=== PATIENT | female | born 1980 | race Caucasian/White ===

== ENCOUNTER 2017-09-06 09:39 | Emergency (ER) | payer SELFPAY ==
[~2017-09-06] VITALS: Ht 162.6 cm; Wt 50.0 kg
[2017-09-06 09:40] VITALS: BP 121/76; PULSE 64; RESP 16; TEMP 99.1; O2SAT 100
== END 2017-09-06 13:50 | disposition left against medical advice (07) ==
LOC: NED 09:39 → EDBD 09:39 → NED 13:50
DX: R68.89 Other general symptoms and signs (principal)
CPT/HCPCS: 99281